=== PATIENT | female | born 1995 | race Caucasian/White ===

== ENCOUNTER 2017-12-11 17:49 | Emergency (ER) | payer MEDICAID ==
[2017-12-11 18:54] LABS: APPEARANCE HAZY (CLEAR); BILIRUBIN NEGATIVE (NEGATIVE); COLOR YELLOW (YELLOW); GLUCOSE NEGATIVE (NEGATIVE); KETONE NEGATIVE (NEGATIVE); NITRITE POSITIVE (NEGATIVE); PROTEIN NEGATIVE (NEGATIVE); UROBILINOGEN NORMAL (NORMAL)
[2017-12-11 18:55] LABS: BACTERIA MANY /hpf (NONE SEEN); EPITHELIAL CELLS 0-5 /hpf (0-5); RED CELLS - URINE 0-5 /hpf (0-5)
== END 2017-12-11 20:11 | disposition left against medical advice (07) ==
LOC: D.ER 17:49
PROVIDERS: Emergency Medicine
DX: R10.9 Unspecified abdominal pain (principal)

== ENCOUNTER 2018-04-27 18:15 | Outpatient (CLI) | payer MEDICAID ==
[2018-04-27 20:15] LABS: APPEARANCE CLEAR (CLEAR); BILIRUBIN NEGATIVE (NEGATIVE); COLOR YELLOW (YELLOW); GLUCOSE 250 mg/dL (NEGATIVE); KETONE NEGATIVE (NEGATIVE); NITRITE NEGATIVE (NEGATIVE); PROTEIN NEGATIVE (NEGATIVE); SPECIFIC GRAVITY 1.025 (1.005-1.020); UROBILINOGEN NORMAL (NORMAL)
[2018-04-27 20:16] LABS: BACTERIA MODERATE /hpf (NONE SEEN); EPITHELIAL CELLS 0-5 /hpf (0-5); RED CELLS - URINE 0-5 /hpf (0-5); WHITE CELLS - URINE 0-5 /hpf (0-5)
[2018-04-27 20:17] LABS: CALCIUM OXALATE CRYSTALS 0-5 /hpf (NONE SEEN)
[2018-04-27] MEDS ORDERED: KEFLEX500 MG PO (22:20)
[2018-04-27] MEDS ORDERED: FLAGYL500 MG PO (22:20)
[2018-05-01 22:15] LABS: CHLAMYDIA TRACHOMATIS, NAA Negative (Negative)
== END 2018-04-27 22:33 | disposition home or self-care (01) ==
LOC: D.LDO 18:15
PROVIDERS: Obstetrics & Gynecology
DX: O26.899 Other specified pregnancy related conditions, unspecified trimester (principal)

== ENCOUNTER 2018-05-02 10:33 | Emergency (ER) | payer MEDICAID ==
[~2018-05-02] VITALS: Ht 167.6 cm; Wt 63.6 kg
[~2018-05-02 10:33] MED LIST: FLAGYL500 MG PO; KEFLEX500 MG PO
[2018-05-02 10:35] VITALS: Ht 167.6 cm; Wt 63.6 kg
[2018-05-02 11:05] VITALS: BP 122/69
== END 2018-05-02 11:06 | disposition home or self-care (01) ==
LOC: D.ER 10:33
DX: O26.893 Other specified pregnancy related conditions, third trimester (principal); Z3A.00 Weeks of gestation of pregnancy not specified; S50.311A Abrasion of right elbow, initial encounter; W01.0XXA Fall on same level from slipping, tripping and stumbling without subsequent striking against object, initial encounter; Y93.89 Activity, other specified; Y92.019 Unspecified place in single-family (private) house as the place of occurrence of the external cause